=== PATIENT | male | born 1945 | race Caucasian/White ===

== ENCOUNTER 2016-11-12 08:57 | Inpatient (IN) | payer MEDICARE ==
[2016-11-02 10:34] LABS: HEMATOCRIT 44.4 % (40.0-51.0); HEMOGLOBIN 14.9 g/dL (13.6-17.8)
[2016-11-02 10:55] LABS: ALBUMIN 3.8 G/DL (3.5-5.0); ALKALINE PHOSPHATASE 79 U/L (45-117); BUN (BLOOD UREA NITROGEN) 13 MG/DL (6-23); CALCIUM, SERUM 9.1 MG/DL (8.5-10.4); CHLORIDE, SERUM 108 MMOL/L (96-112); CO2 (CARBON DIOXIDE) 30 MMOL/L (24-34); GFR AFRICAN AMERICAN 89 ML/MIN (>=60); GFR NON AFRICAN AMERICAN 76 ML/MIN (>=60); GLOBULIN 3.9 G/DL (2.5-4.1); GLUCOSE, SERUM 94 MG/DL (60-99); POTASSIUM, SERUM 4.3 MMOL/L (3.5-5.3); SGOT(AST) 25 U/L (5-40); SGPT(ALT) 27 U/L (5-65); SODIUM, SERUM 143 MMOL/L (135-148); TOTAL BILIRUBIN 0.4 MG/DL (0-1.2); TOTAL PROTEIN 7.7 G/DL (6.0-8.5)
--- NOTE | ~2016-11-12 | OP ---
Record Of Operation [facility] [address] [place]. [address] NAME: NEY KRAMER : 47 STATUS : ADM IN PAT#: [id number] AGE: 71 ADM/REG DATE : 11/12/16 MR#: [id number] REPORT SERV DATE: 11/12/16 DICTATED BY: IGNACIO PARRISH DATE: 11/12/16 REPORT STATUS : Draft TRANSCRIBED BY: MODL DATE: 11/12/16 DATE OF PROCEDURE: 11/12/2016 PREOPERATIVE DIAGNOSIS: Ventral/incisional hernia. POSTOPERATIVE DIAGNOSIS: Ventral/incisional hernia. PROCEDURE: Attempted laparoscopic followed by open ventral incisional hernia repair with component separation technique. SURGEON: Ignacio Parrish M.D. DESCRIPTION OF OPERATIVE PROCEDURE: The patient was brought to the operating suite, placed in supine position and underwent satisfactory general endotracheal anesthesia. The skin of the abdomen was scrubbed, prepped, and draped in usual sterile fashion. 0.5% Marcaine with epinephrine was utilized as supplemental local anesthesia at intended surgical sites. Initially, a left subcostal incision was performed dissecting through the skin and subcutaneous tissue. A disposable Veress insufflation needle was inserted through the muscular aponeurotic fascia into the peritoneal cavity with the intraperitoneal tip location ascertained using the saline hanging drop method. Following this, CO2 was insufflated for pressures of 15 mmHg throughout the case. After adequate insufflation pressures were obtained, the Veress needle was removed, and a non-bladed 11 mm Optiview trocar was inserted into this left subcostal site following which maintenance of CO2 insufflation, rigid forward-viewing 10 mm laparoscope was inserted, and visualization of the intraabdominal parietes revealed no evidence of injury from the initial insufflation or puncture. Two additional 5 mm trocars were placed in the left mid-abdomen in the left lower quadrant under direct visualization. Attention was then turned to the midline where the patient had a known umbilical defect as well as an incisional defect from prostatectomy. Initial strategy was to proceed with a laparoscopic onlay patch on the peritoneal surface. The portion of the urachus and then the falciform ligament were taken down with the cautery, and the falciform ligament was controlled with a 0 PDS endo-loop. After this dissection, it was realized that the patient had a large diastasis of the rectus muscles in the upper midline with no real significant musculature to affix a laparoscopic patch to making repair unsatisfactory. Therefore, laparoscopy was terminated. CO2 was allowed to egress from the peritoneal cavity and the trocars removed. Following this, a component separation technique was contemplated. Midline incision was performed dissecting through the skin and subcutaneous tissue until I could identify the medial aspect of the rectus musculature bilaterally. Then, the posterior rectus sheath was identified and the anterior rectus sheath with attached rectus musculature was elevated up off the posterior rectus sheaths bilaterally to the full lateral extent of the rectus muscle and then superiorly to the costal margin and inferiorly towards the pelvis. Record Of Operation [facility] [address] [place]. [address] NAME: NEY KRAMER : 47 STATUS : ADM IN PAT#: [id number] AGE: 71 ADM/REG DATE : 11/12/16 MR#: [id number] REPORT SERV DATE: 11/12/16 DICTATED BY: IGNACIO PARRISH DATE: 11/12/16 REPORT STATUS : Draft TRANSCRIBED BY: MAGDALENA DATE: 11/12/16 The posterior rectus sheath was closed in the midline with multiple interrupted figure-of- eight sutures of 0 Ethibond. The area was irrigated and hemostasis was assured. A 15 x [address] Patch was chosen. It was trimmed in a "butterfly" shape and placed on the surface of the posterior rectus sheath. Following this, the anterior rectus sheath with attached rectus muscle was closed over the mesh, sandwiched in between the layers in a component separation fashion. Again multiple interrupted [id number] sutures of 0 Ethibond were utilized. Subcutaneous tissues irrigated and redundant skin and fat was excised in elliptical fashion following which subcutaneous tissue was closed interrupted 2-0 Vicryl, running subcuticular stitch 4-0 Vicryl for the skin. The left lateral abdominal laparoscopic incisions were closed utilizing 0 Ethibond at the fascia for the 11 mm site, subcutaneous tissue is interrupted, a 3-0 Vicryl running subcuticular stitch 4-0 Vicryl for the skin, and a midline incision had Dermabond skin adhesives applied, following which a Prevena Incision Management System was applied and placed to suction. The patient tolerated the procedure well, returned to PACU in stable condition. At the termination of procedure; sponge, needle, lap, and instrument count correct x3. ESTIMATED BLOOD LOSS: 25 mL. SURI/MODL Ignacio Parrish M.D. / [id number] CC: Ignacio Parrish M.D.
[~2016-11-12 08:57] MED LIST: ADDERALL30 MG PO; ASAB PO; FLOMAX4 PO; LEXAPRO10 PO; MULTIVIT/MIN PO; PRILO PO; TYLENOL PM PO; VITAMIN D31000 UNIT PO; ZOCOR40 PO
[2016-11-13 05:46] LABS: BASOPHILS 0 %; EOSINOPHILS 0 %; HEMATOCRIT 41.5 % (40.0-51.0); HEMOGLOBIN 14.1 g/dL (13.6-17.8); IMMATURE GRANULOCYTES 0.2 %; IMMATURE GRANULOCYTES ABSOLUTE 0.03 10/3/uL (0.0-0.11); LYMPHOCYTES 5.4 %; LYMPHOCYTES ABSOLUTE 0.75 10/3/uL (0.67-4.30); MEAN CORPUSCULAR VOLUME 91.2 fL (80-100); MEAN PLATELET VOLUME 9.2 fL (9.2-13.0); MONOCYTES 8.2 %; MONOCYTES ABSOLUTE 1.15 10/3/uL (0.21-1.20); NEUTROPHILS 86.2 %; NEUTROPHILS ABSOLUTE 12.05 10/3/uL (2.02-8.40); PLATELET COUNT 293 10/3/uL (150-400); RBC DISTRIBUTION WIDTH 12.9 % (12.0-16.0); RED CELL COUNT 4.55 10/6/uL (4.7-6.1)
[2016-11-13 05:47] LABS: MANUAL DIFF NO %
[2016-11-13 05:59] LABS: ALBUMIN 3.4 G/DL (3.5-5.0); ALKALINE PHOSPHATASE 66 U/L (45-117); BUN (BLOOD UREA NITROGEN) 12 MG/DL (6-23); CALCIUM, SERUM 8.5 MG/DL (8.5-10.4); CHLORIDE, SERUM 106 MMOL/L (96-112); CO2 (CARBON DIOXIDE) 25 MMOL/L (24-34); GFR AFRICAN AMERICAN 105 ML/MIN (>=60); GFR NON AFRICAN AMERICAN 91 ML/MIN (>=60); GLOBULIN 3.3 G/DL (2.5-4.1); GLUCOSE, SERUM 127 MG/DL (60-99); SGOT(AST) 17 U/L (5-40); SGPT(ALT) 21 U/L (5-65); SODIUM, SERUM 141 MMOL/L (135-148); TOTAL BILIRUBIN 0.5 MG/DL (0-1.2); TOTAL PROTEIN 6.7 G/DL (6.0-8.5)
[2016-11-14] MEDS ORDERED: NORCO1 TA1 PO (14:10)
== END 2016-11-14 14:55 | disposition home or self-care (01) | DRG 355 ==
LOC: SDC 08:57 → SDC/OF 15:16 → 5SO 16:55
PROVIDERS: Specialist
PROC: 0WUF0JZ Supplement Abdominal Wall with Synthetic Substitute, Open Approach (ICD-10-PCS; principal; 2016-11-12 10:45)
DX: K43.2 Incisional hernia without obstruction or gangrene (principal); F90.9 Attention-deficit hyperactivity disorder, unspecified type; Z53.31 Laparoscopic surgical procedure converted to open procedure; Z88.0 Allergy status to penicillin; Z79.899 Other long term (current) drug therapy; Z79.82 Long term (current) use of aspirin; G47.33 Obstructive sleep apnea (adult) (pediatric); M19.90 Unspecified osteoarthritis, unspecified site
CPT/HCPCS: 80053; 85014; 85018; 85025; 87070; 88302; 93005; A9270-GY; C1781; J2250; J2370; J2405; J2710; J2795; J3010; J3370